=== PATIENT | male | born 1995 | race Two or more races ===

== ENCOUNTER 2019-03-16 21:15 | Emergency (ER) | payer OTHER ==
[~2019-03-16] VITALS: Ht 167.6 cm; Wt 114.0 kg
[2019-03-16 22:09] LABS: BASOPHILS # (AUTO) 0.03 x10^3/uL (0-0.1); BASOPHILS % (AUTO) 0 % (0-1); EOSINOPHILS # (AUTO) 0.09 x10^3/uL (0-0.4); EOSINOPHILS % (AUTO) 1 % (1-7); LYMPHOCYTES % (AUTO) 39 % (22-44); MD NO; MEAN CORPUSCULAR HEMOGLOBIN 30.7 pg (27.5-34.5); MEAN CORPUSCULAR HGB CONC 34.5 g/dL (33.2-36.2); MEAN CORPUSCULAR VOLUME 89.2 fL (81-97); MONOCYTES # (AUTO) 0.75 x10^3/uL (0.2-0.8); MONOCYTES % (AUTO) 7 % (2-9); NEUTROPHILS # (AUTO) 5.37 x10^3/uL (1.8-6.8); NEUTROPHILS % (AUTO) 53 % (42-75); PLATELET COUNT 284 x10^3/uL (130-400); RED BLOOD COUNT 5.72 x10^6/uL (4.38-5.82); RED CELL DISTRIBUTION WIDTH 12.7 % (9.4-14.8)
--- NOTE | 2019-03-16 22:12 | NUR ---
PT IN GOWN IN [facility]. 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 PT VSS. PT EDUCATED ON ER PROCESS AND POC AND VERBALIZES UNDERSTANDING. DR. URNEA AT FOR PT HISTORY AND ASSESSMENT. CALL LIGHT IS WITHIN REACH AT THIS TIME.
[2019-03-16 22:22] LABS: ALANINE AMINOTRANSFERASE 120 U/L (12-78); ALBUMIN 4.6 g/dL (3.4-5.0); ANION GAP 10 mmol/L (5-15); CALCIUM 8.8 mg/dL (8.5-10.1); CHLORIDE 115 mmol/L (98-107); CREATININE 0.87 mg/dL (0.7-1.3)
[2019-03-16 22:26] LABS: ALKALINE PHOSPHATASE 77 U/L (45-117); BILIRUBIN,TOTAL 0.6 mg/dL (0.2-1.0); TOTAL PROTEIN 8.4 g/dL (6.4-8.2); TROPONIN I < 0.015 ng/mL (0.000-0.045)
[2019-03-16] MEDS ORDERED: POTASSIUM CHLORIDE 20 MEQ TAB.ER.PRT ONE (22:57)
--- NOTE | 2019-03-16 22:59 | NUR ---
PT MEDICATED PER MAR. CALL LIGHT IS WITHIN REACH AT THIS TIME.
[2019-03-16] MEDS ORDERED: POTASSIUM CHLORIDE 20 MEQ TAB.ER.PRT PO ONE (23:00)
--- NOTE | 2019-03-16 23:09 | NUR ---
PT ASLEEP IN [facility] AT THIS TIME.
--- NOTE | 2019-03-17 00:12 | NUR ---
PT D/C WITH D/C SUMMARY AND SCRIPTS IN CARE OF FRIEND. PER PT, [facility] HAS BEEN CALLED FOR SAFE D/C HOME, PT HAS BEEN DRINKING. PT DENIES ANY OTHER NEEDS PERTAINING TO THIS VISIT. PT AMBULATES TO REGISTRATION DESK WITH [facility]ADY GAIT FOR D/C HOME. PT VSS UPON D/C.
[2019-03-17 00:13] VITALS: BP 139/81
== END 2019-03-17 00:16 | disposition home or self-care (01) ==
LOC: ED 22:06
DX: R07.89 Other chest pain (principal); E87.6 Hypokalemia; F10.121 Alcohol abuse with intoxication delirium; F17.200 Nicotine dependence, unspecified, uncomplicated
CPT/HCPCS: 36415; 71046; 80053; 84484; 85025; 85379; 93005; 99284